=== PATIENT | male | born 1970 | race Caucasian/White ===

== ENCOUNTER 2024-01-10 23:31 | Inpatient (IN) | payer MEDICARE ==
--- NOTE | 2024-01-10 23:48 | ED ---
Chest Pain HPI - General Chief Complaint: Chest Pain Stated Complaint: chest pain fatigue numbness Time Seen by Provider: 01/10/24 23:43 Source: patient Mode of arrival: wheelchair Limitations: no limitations - History of Present Illness Initial Comments: This patient is a 53-year-old man who presents for evaluation of chest pain. He states that he had taken a shower and when he got out around 930 he noticed that there was substernal chest pain, that he states was a tight feeling. He also had diaphoresis and some nausea. The patient states that he took 4 baby aspirin's and when the pain did not resolve he took another 4 and called ambulance. MD Complaint: chest pain Onset/Timin -: hour(s) Onset: during rest Pain Location: substernal Pain Radiation: LUE Severity: moderate Quality: tightness Consistency: constant Improves With: nothing Worsens With: nothing Anginal Symptoms: diaphoresis Treatments Prior to Arrival: aspirin - Related Data Home Medications Medication Instructions Recorded Confirmed Omeprazole Magnesium [PriLOSEC OTC] 20 mg PO DAILY 01/11/24 01/11/24 Previous Rx's Medication Instructions Recorded Aspirin 81 mg PO DAILY #100 tab 01/12/24 Atorvastatin [Lipitor] 80 mg PO HS #30 tab 01/12/24 Losartan [Cozaar] 12.5 mg PO DAILY #30 tab 01/12/24 Metoprolol Tartrate [Lopressor] 25 mg PO BID #60 tab 01/12/24 Nitroglycerin Sl Tabs [Nitrostat] 0.4 mg SUBLINGUAL Q5M PRN #20 tab 01/12/24 Ticagrelor [Brilinta] 90 mg PO BID #60 tab 01/12/24 Allergies Allergy/AdvReac Type Severity Reaction Status Date / Time acetaminophen [From Percocet] AdvReac Vomiting Verified 01/11/24 09:31 oxycodone [From Percocet] AdvReac Vomiting Verified 01/11/24 09:31 Review of Systems ROS Statement: Those systems with pertinent positive or pertinent negative responses have been documented in the HPI. ROS Other: All systems not noted in ROS Statement are negative. Constitutional: Denies: fever, chills Respiratory: Denies: cough, dyspnea Cardiovascular: Reports: chest pain. Denies: palpitations, edema, syncope Gastrointestinal: Reports: nausea. Denies: abdominal pain, vomiting, diarrhea Genitourinary: Denies: dysuria, hematuria Musculoskeletal: Denies: back pain Skin: Denies: rash Neurological: Denies: headache, weakness EKG Findings - EKG Results: EKG: interpreted by PRADEEP, sinus rhythm (Rate 77 bpm), normal axis - MA, Pacemaker, Normal: Myocardial infarction: inferior MA (acute or recent) Past Medical History Past Medical History: No Reported History History of Any Multi-Drug Resistant Organisms: None Reported Past Surgical History: Orthopedic Surgery Past Psychological History: No Psychological Hx Reported Smoking Status: Never smoker Past Alcohol Use History: None Reported Past Drug Use History: None Reported General Exam Limitations: no limitations General appearance: alert, in no apparent distress Head exam: Present: atraumatic, normocephalic Eye exam: Present: normal appearance. Absent: scleral icterus, conjunctival injection Neck exam: Present: normal inspection Respiratory exam: Present: normal lung sounds bilaterally. Absent: respiratory distress, wheezes, rales, rhonchi, stridor, chest wall tenderness, accessory muscle use Cardiovascular Exam: Present: regular rate, normal rhythm, normal heart sounds. Absent: systolic murmur, diastolic murmur, rubs, gallop GI/Abdominal exam: Present: soft. Absent: distended, tenderness, guarding, rebound, rigid, mass Extremities exam: Present: normal inspection, normal capillary refill. Absent: pedal edema, calf tenderness Back exam: Present: normal inspection. Absent: CVA tenderness (R), CVA tenderness (L) Neurological exam: Present: alert Skin exam: Present: warm, dry, intact, normal color. Absent: rash Course Vital Signs 01/10/24 01/10/24 01/10/24 23:32 23:53 23:58 Temperature 97.4 F L Pulse Rate 70 71 98 Respiratory 22 18 18 Rate Blood Pressure 155/88 136/86 153/115 O2 Sat by Pulse 97 96 97 Oximetry 01/11/24 01/11/24 01/11/24 00:03 00:08 00:13 Temperature Pulse Rate 86 82 77 Respiratory 18 18 18 Rate Blood Pressure 138/76 128/74 179/79 O2 Sat by Pulse 96 97 98 Oximetry Chest Pain [facility] - MDM The patient had chest x-ray which I interpreted as negative for acute infiltrate, pneumothorax, congestive heart failure Patient is 53-year-old man presenting with chest pain. I saw and evaluated the patient and then he had ECG performed. I was promptly delivered the ECG and interpreted as showing acute inferior STEMI. I had code STEMI activated and activated Electronics Warfare Technician. Case subsequently discussed with cardiology on-call and they will take patient to Electronics Warfare Technician. Was pt. sent in by a medical professional or institution (, [facility], [facility], urgent care, hospital, or prison...) When possible be specific @ -[No] Did you speak to anyone other than the patient for history (EMS, parent, family, police, friend...)? What history was obtained from this source @ -[No] Did you review nursing and triage notes (agree or disagree)? Why? @ -[I reviewed and agree with nursing and triage notes] Were old charts reviewed (outside hosp., previous admission, EMS record, old EKG, old radiological studies, urgent care reports/EKG's, prison records)? Report findings @ -[No old charts were reviewed] Differential Diagnosis (chest pain, altered mental status, abdominal pain women, abdominal pain men, vaginal bleeding, weakness, fever, dyspnea, syncope, headache, dizziness, GI bleed, back pain, seizure, CVA, palpatations, mental health, musculoskeletal)? @ -[Differential Chest Pain: Stable Angina, Unstable Angina, STEMI, NSTEMI Aortic Dissection, Pneumothorax, Musculoskeletal, Esophageal Spasm GERD, Cholecystitis, Pancreatitis, Zoster, this is not meant to be an all-inclusive list. EKG interpreted by me (3pts min.). @ -[I interpreted as showing inferior STEMI, as above X-rays interpreted by me (1pt min.). @ -[I interpreted as above CT interpreted by me (1pt min.). @ -[None done] U/S interpreted by me (1pt. min.). @ -[None done] What testing was considered but not performed or refused? (CT, X-rays, U/S, labs)? Why? @ -[None] What meds were considered but not given or refused? Why? @ -[None] Did you discuss the management of the patient with other professionals (professionals i.e. , [facility], [facility], lab, RT, psych nurse, social economist, feedlot manager, teacher, food safety officer, counter caser)? Give summary @ -[I discussed the case with cardiology on-call and with Dr. Hargrove who will be the admitting physician, treatment recommendations are incorporated Was smoking cessation discussed for >3mins.? @ -[Yes Was critical care preformed (if so, how long)? @ -[Yes, 30 minutes Were there social determinants of health that impacted care today? How? (Home lessness, low income, unemployed, alcoholism, drug addiction, transportation, low edu. Level, literacy, decrease access to med. care, fci, rehab)? @ -[No] Was there de-escalation of care discussed even if they declined (Discuss DNR or withdrawal of care, Hospice)? DNR status @ -[No] What co-morbidities impacted this encounter? (DM, HTN, Smoking, COPD, CAD, Cancer, CVA, ARF, Chemo, Hep., AIDS, mental health diagnosis, sleep apnea, morbid obesity)? @ -[hypertension Was patient admitted / discharged? Hospital course, mention meds given and route, prescriptions, significant lab abnormalities, going to OR and other pertinent info. @ -[See the above note Undiagnosed new problem with uncertain prognosis? @ -[No] Drug Therapy requiring intensive monitoring for toxicity (Heparin, Nitro, Insul in, Cardizem)? @ -[Heparin Were any procedures done? @ -[No] Diagnosis/symptom? @ -[Acute inferior STEMI Acute, or Chronic, or Acute on Chronic? @ -[Acute Uncomplicated (without systemic symptoms) or Complicated (systemic symptoms)? @ -[Uncomplicated Side effects of treatment? @ -[No] Exacerbation, Progression, or Severe Exacerbation? @ -[No] Poses a threat to life or bodily function? How? (Chest pain, USA, MA, pneumonia, PE, COPD, DKA, ARF, appy, cholecystitis, CVA, Diverticulitis, Homicidal, Suicidal, threat to staff... and all critical care pts) @ -[Yes Disposition Clinical Impression: STEMI (ST elevation myocardial infarction) Disposition: ADMITTED IP TO THIS HOSP Condition: Critical Is patient prescribed a controlled substance at d/c from ED?: No
[2024-01-10] MEDS ORDERED: HEPARIN SODIUM 1,000 UN/ML (10ML VL) IV PRN (23:54)
[2024-01-11] MEDS: MORPHINE SULFATE 4 MG/ML SYRINGE IV STA (00:01)
[2024-01-11] MEDS: HEPARIN SODIUM 1,000 UN/ML (10ML VL) IV ONE ×2 (00:02→00:40)
[2024-01-11] MEDS: HEPARIN SOD,PORK IN 0.45% NACL 25,000 UNIT in 0.45% NACL 1 250ML.BAG IV SCH (00:03)
--- NOTE | 2024-01-11 00:16 | XR ---
EXAM: XR Chest, 1 View CLINICAL HISTORY: ITS.REASON XR Reason: Chest Pain TECHNIQUE: Frontal view of the chest. COMPARISON: No relevant prior studies available. FINDINGS: Lungs: Unremarkable. No consolidation. Pleural space: Unremarkable. No pleural effusion or pneumothorax. Heart: Unremarkable. No cardiomegaly or pulmonary vascular congestion. Bones/joints: No acute fracture. No dislocation. IMPRESSION: No evidence of acute cardiopulmonary disease.
--- NOTE | 2024-01-11 00:24 | P.CRDCN ---
History of Present Illness History of present illness: HISTORY OF PRESENTING ILLNESS This is a pleasant 53-year-old with no significant past medical history other than morbid obesity however does not follow regularly with a doctor. Patient states that around 9:30 PM tonight he is taking a shower and then began to have substernal chest pain associated with some diaphoresis and nausea. The pain did not resolve and therefore called EMS. EKG shows sinus rhythm with inferior ST elevations with reciprocal changes. Blood pressures in the 150s over 80s initially. he does not smoke, no alcohol, no illicit drugs. No family history of coronary artery disease. He admits his blood pressure has been fairly consistently in the 140s and 150s over 90s however has not taken medications at home. REVIEW OF SYSTEMS At the time of my exam: CONSTITUTIONAL: Denies fever or chills. CARDIOVASCULAR: +chest pain, +shortness of breath, no orthopnea, PND or palpitations. RESPIRATORY: Denies cough. GASTROINTESTINAL: Denies abdominal pain, diarrhea, constipation, +nausea no vomiting. MUSCULOSKELETAL: Denies myalgias. NEUROLOGIC: Denies numbness, tingling or weakness. ENDOCRINE: Denies fatigue, weight change, polydipsia or polyurina. GENITOURINARY: Denies burning, hematuria or urgency with micturation. HEMATOLOGIC: Denies history of anemia or bleeding. PHYSICAL EXAMINATION Vital signs reviewed. CONSTITUTIONAL: No apparent distress. HEENT: Head is normocephalic. Pupils are equal, round. Sclerae anicteric. Mucous membranes of the mouth are moist. No JVD. No carotid bruit. CHEST EXAMINATION: Lungs are clear to auscultation. No chest wall tenderness is noted on palpation or with deep breathing. HEART EXAMINATION: Regular rate and rhythm. S1, S2 heard. No murmurs, gallops or rub. ABDOMEN: Soft, nontender. Positive bowel sounds. EXTREMITIES: 2+ peripheral pulses, no lower extremity edema and no calf tenderness. NEUROLOGIC EXAMINATION: Patient is awake, alert and oriented x3. ASSESSMENT Inferior STEMI Morbid obesity Hypertension Poor medical follow-up previously PLAN Discussed risks and benefits of emergency heart catheterization patient is agreeable. Proceed with heart catheterization. Aspirin and heparin. Beta blockers tolerated. Check 2-D echo. further recommendations to follow. Past Medical History Past Medical History: No Reported History History of Any Multi-Drug Resistant Organisms: None Reported Past Surgical History: Orthopedic Surgery Past Psychological History: No Psychological Hx Reported Smoking Status: Never smoker Past Alcohol Use History: None Reported Past Drug Use History: None Reported Medications and Allergies Allergies Allergy/AdvReac Type Severity Reaction Status Date / Time acetaminophen [From Percocet] AdvReac Vomiting Verified 01/10/24 23:34 oxycodone [From Percocet] AdvReac Vomiting Verified 01/10/24 23:34 Physical Exam Vitals: Vital Signs Temp Pulse Resp BP Pulse Ox 01/11/24 00:08 82 18 128/74 97 01/11/24 00:03 86 18 138/76 96 01/10/24 23:58 98 18 153/115 97 01/10/24 23:53 71 18 136/86 96 01/10/24 23:32 97.4 F L 70 22 155/88 97 Intake and Output 01/10/24 01/10/24 01/11/24 14:59 22:59 06:59 Other: Weight 167.829 kg Results Current Medications Generic Name Dose Route Start Last Admin Trade Name Delioq PRN Reason Stop Dose Admin Heparin Sodium (Porcine) 0 unit 01/10/24 23:54 Heparin Sodium 1,000 Un/Ml (10ml Vl) IV PER PROTOCOL PRN Low PTT Protocol Heparin Sodium/Sodium Chloride 250 mls @ 10 mls/hr 01/10/24 23:45 01/11/24 00:03 25,000 unit/ Sodium Chloride IV 5.9584 units/kg/hr .Q24H ADRY 10 mls/hr Administration Protocol 5.9584 UNITS/KG/HR Intake and Output 01/10/24 01/10/24 01/11/24 14:59 22:59 06:59 Other: Weight 167.829 kg Patient Weight 01/11/24 06:59 Weight 167.829 kg
[2024-01-11 00:27] LABS: ALT 26 U/L (4-49); AST 25 U/L (17-59); African American GFR (CKD) >90 (>60 ml/min/1.73 sqM); Albumin 3.4 g/dL (3.5-5.0); Alkaline Phosphatase 117 U/L (38-126); Amylase 58 U/L (30-110); Anion Gap 3 mmol/L; Blood Urea Nitrogen 9 mg/dL (9-20); Carbon Dioxide 28 mmol/L (22-30); Chloride 106 mmol/L (98-107); Glucose 207 mg/dL (74-99); Lipase 122 U/L (23-300); Non-African American GFR(CKD) >90 (>60 ml/min/1.73 sqM); Potassium 4.3 mmol/L (3.5-5.1); Sodium 137 mmol/L (137-145); Total Bilirubin 0.4 mg/dL (0.2-1.3); Total Protein 6.1 g/dL (6.3-8.2)
[2024-01-11] MEDS: SODIUM CHLORIDE 0.9% 1,000 ML IV ONE (00:27)
[2024-01-11] MEDS: MIDAZOLAM 2 MG/2 ML VIAL IVP ONE (00:27)
[2024-01-11] MEDS: LIDOCAINE 1% INJ 10MG/ML (20 ML MDV) SQ ONE (00:27)
[2024-01-11] MEDS: fentaNYL (PF) 50 MCG/1 ML VIAL IVP ONE (00:27)
[2024-01-11] MEDS ORDERED: fentaNYL (PF) 50 MCG/ML 2 ML AMP ONE (00:30)
[2024-01-11] MEDS: VERAPAMIL SYRINGE (5 MG/10 ML) INTRAARTER ONE (00:31)
[2024-01-11] MEDS ORDERED: TICAGRELOR 90 MG TAB ONE (00:37)
[2024-01-11] MEDS ORDERED: HEPARIN SODIUM 1,000 UN/ML (10ML VL) ONE (00:38)
[2024-01-11] MEDS: TICAGRELOR 90 MG TAB PO ONE (00:42)
[2024-01-11 00:44] LABS: Partial Thromboplastin Time 22.8 sec (22.0-30.0); Prothrombin Time 10.7 sec (10.0-12.5)
[2024-01-11] MEDS: HEPARIN SODIUM 1,000 UN/ML (10ML VL) IVP ONE (00:50)
[2024-01-11] MEDS: NITROGLYCERIN 1000MCG/10ML SYRINGE INTRACORON ONE (01:08)
[2024-01-11] MEDS: IOPAMIDOL-370 100ML BTL INJ ONE ×2 (01:12→01:21)
[2024-01-11 01:14] LABS: Basophils % (A) 0 %; Eosinophils # (A) 0.3 k/uL (0-0.7); Eosinophils % (A) 2 %; HCT 51.2 % (39.0-53.0); HGB 16.9 gm/dL (13.0-17.5); Lymphocytes # (A) 2.1 k/uL (1.0-4.8); Lymphocytes % (A) 17 %; MCH 29.5 pg (25.0-35.0); MCV 89.2 fL (80.0-100.0); Mean Platelet Volume 9.2; Monocytes # (A) 0.6 k/uL (0-1.0); Monocytes % (A) 5 %; Neutrophils # (A) 8.8 k/uL (1.3-7.7); Neutrophils % (A) 74 %; Platelet Count 265 k/uL (150-450); RBC 5.73 m/uL (4.30-5.90); RDW 14.1 % (11.5-15.5); WBC 11.9 k/uL (3.8-10.6)
[2024-01-11] MEDS ORDERED: RX INFO: IV CONTRAST WAS GIVEN 1 EACH MISC MISCELLANE PRN (01:30)
[2024-01-11] MEDS ORDERED: ZOLPIDEM 5 MG TAB PO PRN (01:30)
[2024-01-11] MEDS ORDERED: ATROPINE SULFATE 0.1 MG/ML 10ML SYRINGE IV PRN (01:30)
[2024-01-11] MEDS ORDERED: NITROGLYCERIN SL TABS 0.4 MG TAB SUBLINGUAL PRN (01:30)
[2024-01-11] MEDS ORDERED: MAG HYDROX/AL HYDROX/SIMETH 30 ML CUP PO PRN (01:30)
--- NOTE | 2024-01-11 01:30 | P.PRCINT ---
Percutaneous Coronary Int. - Percutaneous Coronary Intervention Percutaneous Coronary Intervention: PROCEDURES PERFORMED: Left heart catheterization, bilateral coronary angiography, ultrasound guided arterial access, PCI proximal LAD with a 4.0 x 15mm Xience DANITA, IVUS RCA, Penumbra aspiration thrombectomy RCA INDICATION: inferior STEMI CONSENT:I have discussed the risks, benefits and alternative therapies for the above-mentioned procedure and for both sedation/analgesia as well as necessary blood product administration, if indicated, as they pertain to this patient. The patient has indicated understanding and acceptance of the risks and procedures discussed. PROCEDURE: After the risks, benefits and alternatives of the above mentioned procedure explained in detail with the patient, informed consent was obtained. Patient was taken to the catheterization lab and prepped and draped in usual fashion. Ultrasound guidance was used to assess for arterial access. 1% lidocaine was used to anesthetize the right radial artery. A 6-German sheath was placed in the right radial artery using modified Seldinger technique and ultrasound guidance. the decision was made to perform PCI of the RCA. A 6-German AL 0.75 guide was used to engage RCA. A 0.014 BMW wire was advanced in the distal RCA. Given significant thrombus burden, aspiration thrombectomy was performed with Penumbra aspiration thrombectomy catheter. Predilation was performed with a 3.5 mm balloon. there was what appeared to be a flush occlusion of the PDA and therefore attempted wiring this with a whisper wire as well and appeared to be in lumen with into a PDA septal. Therefore balloon angioplasty was performed with a 2.5 x 12 mm balloon. This however did not open up the artery. Therefore intervascular ultrasound was performed which showed reference vessel more proximally 4.0 mm however at the flush occlusion unable to pass catheter and appeared to be small caliber on intervascular ultrasound. Given patient's chest pain had nearly all improved with only 1 out of 10 chest pain this was felt best treated medically. A 4.0 x 15 mm Xience DANITA was placed in the proximal RCA. Repeat intervascular ultrasound showed well-expanded stent with no dissection. Final angiograms were performed. Preintervention there was 99% stenosis and JANET 2 flow and postintervention there was less than 10% stenosis with JANET 3 flow. Left coronary angiography was performed with a 5-German JL 3.5 catheter. A 5- German FL3.5 catheter was inserted into the left ventricle and pressure measurements were obtained. The right radial sheath was removed and a TR band was placed with hemostasis achieved. The patient tolerated the procedure well. Patient was transported back to the post catheterization holding area in stable condition. Conscious Sedation: Patient was monitored under the direct supervision of myself for conscious sedation using Versed and fentanyl for a total duration of 53 minutes HEMODYNAMICS: Ao: 146/71 LV: 144/5, LVEDP 15mmHg SELECTIVE CORONARY ARTERIOGRAPHY: LEFT MAIN: The left main is a large caliber vessel which bifurcates into the LAD and circumflex. There is no significant stenosis. LEFT ANTERIOR DESCENDING CORONARY ARTERY: LAD is a large caliber vessel which wraps around to the apex. There is diffuse 20% stenosis of the proximal and mid LAD. LEFT CIRCUMFLEX CORONARY ARTERY: Left circumflex is a moderate caliber vessel with mid circumflex 30-40% stenosis. RIGHT CORONARY ARTERY: The right coronary artery is a large caliber vessel which gives off a PDA and PLV branch and is the dominant vessel. There is diffuse proximal 20-30% stenosis followed by a more focal ulcerated plaque with 99% stenosis and heavy thrombus burden. This gives off a PLV branch and PDA branch. There does appear to be a flush occlusion of the distal PDA however also made become small caliber at this point.. FINAL IMPRESSION: 1. CAD as described above including 99% proximal RCA stenosis, 30-40% mid circumflex and 20% LAD stenosis 2. Normal left sided filling pressures 3. Status post PCI proximal LAD with a 4.0 x 15mm Xience DANITA PLAN: 1. Aggressive risk factor modification per most recent ACC/AHA guidelines. 2. Continue dual antiplatelets with aspirin and Brillinta for 12 months
[2024-01-11 01:45] LABS: Glucose,Whole Blood 176 mg/dL (70-110)
[2024-01-11] MEDS: SODIUM CHLORIDE 0.9% 1,000 ML in EMPTY BAG 1 BAG IV SCH (02:12)
[2024-01-11 07:10] LABS: Basophils % (A) 0 %; Eosinophils # (A) 0.1 k/uL (0-0.7); Eosinophils % (A) 1 %; HGB 14.3 gm/dL (13.0-17.5); Lymphocytes # (A) 3.2 k/uL (1.0-4.8); Lymphocytes % (A) 26 %; MCH 28.4 pg (25.0-35.0); MCHC 31.7 g/dL (31.0-37.0); MCV 89.6 fL (80.0-100.0); Mean Platelet Volume 8.5; Monocytes # (A) 0.7 k/uL (0-1.0); Monocytes % (A) 6 %; Neutrophils # (A) 7.9 k/uL (1.3-7.7); Neutrophils % (A) 65 %; Platelet Count 252 k/uL (150-450); RBC 5.03 m/uL (4.30-5.90); WBC 12.2 k/uL (3.8-10.6)
[2024-01-11 07:39] LABS: Prothrombin Time 10.9 sec (10.0-12.5)
--- NOTE | 2024-01-11 08:06 | P.PN ---
Subjective Progress Note Date: 01/11/24 Principal diagnosis: Acute coronary syndrome The patient is a 53-year-old gentleman with overweight and hypertension and dyslipidemia presented to the hospital with chest discomfort and was diagnosed with acute inferior ST deviation myocardial infarction and underwent PCI of the RCA. The echo still pending. January 11, 2024 The patient was seen and evaluated this morning. He is asymptomatic. He is hemodynamically stable. He is on dual antiplatelet therapy along with high intensity statin and beta-reggie with the echo still pending. The examination revealed regular rhythm with clear breathing sounds bilaterally and no carotid bruit and no edema was noted Assessment Acute inferior ST elevation myocardial infarction Multiple comorbid conditions including diabetes and hypertension as lipidemia Plan Continue the current medical regimen Continue dual antiplatelet therapy along with high intensity statin Follow-up with the echocardiogram Follow-up with the patient Monitor for any arrhythmia Objective - Vital Signs Vital signs: Vital Signs Temp 98.5 F 01/11/24 04:00 Pulse 70 01/11/24 07:00 Resp 7 L 01/11/24 07:00 BP 123/73 01/11/24 07:00 Pulse Ox 96 01/11/24 07:00 FiO2 Intake & Output 01/10/24 01/11/24 01/11/24 18:59 06:59 18:59 Intake Total 1608 Output Total 1000 Balance 608 Weight 167 kg Intake: IV 1608 Sodium Chloride 0.9% 1, 1008 000 ml In Empty Bag 1 bag @ 1 ML/KG/HR 167.829 mls /hr IV .Q5H58M [facility] Rx#: [id number] Output: Urine 1000 - Labs CBC & Chem 7: 01/11/24 05:51 01/10/24 23:52 Labs: Abnormal Lab Results - Last 24 Hours (Table) 01/10/24 01/10/24 01/11/24 Range/Units 23:52 23:52 01:42 WBC 11.9 H (3.8-10.6) k/uL Neutrophils # 8.8 H (1.3-7.7) k/uL Glucose 207 H (74-99) mg/dL POC Glucose (mg/dL) 176 H (70-110) mg/dL Total Protein 6.1 L (6.3-8.2) g/dL Albumin 3.4 L (3.5-5.0) g/dL 01/11/24 Range/Units 05:51 WBC 12.2 H (3.8-10.6) k/uL Neutrophils # 7.9 H (1.3-7.7) k/uL Glucose (74-99) mg/dL POC Glucose (mg/dL) (70-110) mg/dL Total Protein (6.3-8.2) g/dL Albumin (3.5-5.0) g/dL
[2024-01-11] MEDS: METOPROLOL TARTRATE 25 MG TAB PO SCH (09:28)
[2024-01-11] MEDS: TICAGRELOR 90 MG TAB PO SCH (09:29)
[2024-01-11] MEDS: ASPIRIN 81 MG PO SCH (09:29)
[2024-01-11] MEDS: LOSARTAN 25 MG TAB PO SCH (09:29)
[2024-01-11 11:44] VITALS: BMI 49.9
--- NOTE | 2024-01-11 13:23 | HP ---
HISTORY AND PHYSICAL CHIEF COMPLAINT: Chest pain. HISTORY OF PRESENT ILLNESS: This is a first known admission for this 53-year-old overweight male. He has not been in the office for years. He only takes Motrin. He is disabled due to prior right knee injury. He was sitting at home when he developed a right parasternal chest pain or pressure associated with diaphoresis and some shortness of breath. His daughter brought him to the hospital, where he was found to have acute NSTEMI, he was taken to the systems testing laboratory technician. REVIEW OF SYSTEMS: Otherwise unremarkable. Past medical history, family history, personal and social histories are otherwise unremarkable. ALLERGIES: He is allergic to Percocet. MEDICATIONS: He has been on: 1. Prilosec. 2. Ibuprofen. PHYSICAL EXAMINATION: VITAL SIGNS: Normal. HEAD, EARS, EYES, NOSE, MOUTH, AND THROAT: Normal. CHEST: Clear. CARDIAC: Normal with sinus rhythm. ABDOMEN: Soft and nontender. EXTREMITIES: Normal except the right knee. NEUROLOGICAL: He is intact. IMPRESSION: He was admitted to the hospital with diagnoses: 1. Acute epa-BO-yzhurstjy myocardial infarction. 2. Disability due to old injury to the right knee. PLAN: 1. Bedrest. 2. IV fluids. 3. Serial EKGs. 4. Cardiology consult. MMODL / IJN: [id number] /
--- NOTE | 2024-01-11 14:00 | PN ---
PROGRESS NOTE DATE OF SERVICE: 01/11/2024 CHIEF COMPLAINT: Acute PR. HISTORY OF PRESENT ILLNESS: The gentleman is doing well. He has had no arrhythmias, chest pain, shortness of breath, etc. PHYSICAL EXAMINATION: VITAL SIGNS: Normal. CHEST: Clear. CARDIAC: Normal. ABDOMEN: Soft and nontender. IMPRESSION: 1. Status post NSTEMI. 2. Coronary artery disease. PLAN: Follow with Cardiology and arrange for outpatient followup. MMODL / IJN: [id number] /
--- NOTE | 2024-01-11 15:11 | CDI ---
Documentation Clarification Form Date: 01/11/2024 02:48:32 PM From: Nadia Prieto RN, CCDS Phone: [phone] Admit Date: 01/11/2024 12:03:00 AM Patient Name: Misael Nelson Visit Number: [id number] Discharge Date: ATTENTION: The Clinical Documentation Specialists (CDI) and [facility] Coding Staff appreciate your assistance in clarifying documentation. Please respond to the clarification below the line at the bottom and electronically sign. The CDI & [facility] Coding staff will review the response and follow-up if needed. Please note: Queries are made part of the Legal Health Record. If you have any questions, please contact the author of this message via ITS. Dr. Ross Hargrove Conflicting documentation has been found in the medical record. As attending physician, please provide clarification. 01/10 Cardiology consult and progress note: Acute inferior ST elevation myocardial infarction 01/10 Attending H/P and progress note: Acute bhv-KU-vbayelhjy myocardial infarction. History/Risk Factors: morbid obesity, hypertension Clinical Indicators: 53-year-old man who presents for evaluation of chest pain. EKG shows sinus rhythm with inferior ST elevations with reciprocal changes. 01/10 VS 138/76 96 18 96% 01/10 cardiology progress note: Acute inferior ST elevation myocardial infarction Multiple comorbid conditions including diabetes and hypertension as lipidemia Treatment: Cardiac Telemetry monitoring 01/10 Left heart catheterization PTCA Cozaar 12.5 MG PO DAILY 01/10-01/10 Lo pressor 25 MG PO BID 01/10 -01/10 Please clarify which diagnosis is most appropriate: [ ] Acute inferior ST elevation myocardial infarction. [ ] Acute sip-MS-gflmrmsgj myocardial infarction. [ ] Other (please specify) [ ] Unable to determine (Template Last Revised: November 2020) MTDD
--- NOTE | 2024-01-11 17:09 | CA ---
Transthoracic Echo Report Name: Misael Nelson Age: 53 Gender: M : 1970 Exam Date: 01/11/2024 08:16 Exam Location: [place] [facility] Ht (in): 72 Wt (lb): 370 Ordering Physician: Anthony Brown DO ([email or web address]) Attending/Referring Phys: Self Storage Manager Maru Tam RDCS Procedure CPT: Indications: re: LV function Cardiac Hx: stent Technical Quality: Technically difficult study Contrast 1: Definity Total Dose (mL): 2 Contrast 2: Total Dose (mL): MEASUREMENTS (Male / Female) Normal Values 2D ECHO LV Diastolic Diameter PLAX 4.6 cm 4.2 - 5.9 / 3.9 - 5.3 cm LV Systolic Diameter PLAX 2.9 cm IVS Diastolic Thickness 1.3 cm 0.6 - 1.0 / 0.6 - 0.9 cm LVPW Diastolic Thickness 1.4 cm 0.6 - 1.0 / 0.6 - 0.9 cm LV Relative Wall Thickness 0.6 RV Internal Dim ED PLAX 3.6 cm LA Systolic Diameter LX 4.2 cm 3.0 - 4.0 / 2.7 - 3.8 cm LA Volume 64.8 cm??? 18 - 58 / 22 - 52 cm??? LA Volume Index 21.6 cm???/m??? 16 - 28 cm???/m??? M-MODE Aortic Root Diameter MM 3.6 cm MV E Point Septal Separation 0.7 cm AV Cusp Separation MM 2.6 cm DOPPLER AV Peak Velocity 171.5 cm/s AV Peak Gradient 11.8 mmHg TR Peak Velocity 274.1 cm/s TR Peak Gradient 30.1 mmHg Right Ventricular Systolic Press 35.1 mmHg FINDINGS Left Ventricle Left ventricular ejection fraction is estimated at 50-55 %. Left ventricular cavity size normal. Mildly increased septal wall thickness. Mid to distal inferior wall hypokinesis Right Ventricle Mild right ventricular dilatation. Mild pulmonary hypertension. Right Atrium Right atrium not well visualized. Left Atrium Mildly increased left atrial diameter. Mildly increased left atrial volume. Mitral Valve Mitral valve not well visualized. No mitral stenosis, regurgitation or prolapse. Aortic Valve Trileaflet aortic valve. No aortic valve stenosis or regurgitation. Tricuspid Valve Structurally normal tricuspid valve. Mild tricuspid regurgitation. Pulmonic Valve Structurally normal pulmonic valve. No pulmonic regurgitation. Pericardium No pericardial effusion. Aorta Normal size aortic root and proximal ascending aorta. CONCLUSIONS Normal LV function Basal inferior wall hypokinesis Mild pulmonary hypertension Previewed by: Dr. Samson Adair MD (Electronically Signed) Final Date: 11 January 2024 17:08
[2024-01-11] MEDS: ATORVASTATIN 80 MG TAB PO SCH (20:45)
[2024-01-12 06:57] LABS: Basophils # (A) 0.1 k/uL (0-0.2); Basophils % (A) 0 %; Eosinophils # (A) 0.5 k/uL (0-0.7); Eosinophils % (A) 4 %; HCT 43.3 % (39.0-53.0); HGB 14.1 gm/dL (13.0-17.5); Lymphocytes # (A) 3.3 k/uL (1.0-4.8); Lymphocytes % (A) 29 %; MCH 29.3 pg (25.0-35.0); MCHC 32.6 g/dL (31.0-37.0); MCV 89.8 fL (80.0-100.0); Monocytes # (A) 0.7 k/uL (0-1.0); Monocytes % (A) 6 %; Neutrophils # (A) 6.5 k/uL (1.3-7.7); Neutrophils % (A) 58 %; Platelet Count 225 k/uL (150-450); RBC 4.82 m/uL (4.30-5.90); RDW 14.3 % (11.5-15.5); WBC 11.3 k/uL (3.8-10.6)
[2024-01-12 07:15] LABS: African American GFR (CKD) >90 (>60 ml/min/1.73 sqM); Anion Gap 7 mmol/L; Blood Urea Nitrogen 8 mg/dL (9-20); Calcium 8.1 mg/dL (8.4-10.2); Carbon Dioxide 22 mmol/L (22-30); Chloride 108 mmol/L (98-107); Glucose 142 mg/dL (74-99); Non-African American GFR(CKD) >90 (>60 ml/min/1.73 sqM); Potassium 3.6 mmol/L (3.5-5.1); Sodium 137 mmol/L (137-145)
--- NOTE | 2024-01-12 07:48 | P.PN ---
Subjective Progress Note Date: 01/12/24 Principal diagnosis: Acute coronary syndrome The patient is a 53-year-old gentleman with overweight and hypertension and dyslipidemia presented to the hospital with chest discomfort and was diagnosed with acute inferior ST deviation myocardial infarction and underwent PCI of the RCA. The echo still pending. January 11, 2024 The patient was seen and evaluated this morning. He is asymptomatic. He is hemodynamically stable. He is on dual antiplatelet therapy along with high intensity statin and beta-reggie with the echo still pending. The examination revealed regular rhythm with clear breathing sounds bilaterally and no carotid bruit and no edema was noted January 12, 2024 The patient was seen and evaluated this morning. He is asymptomatic from a cardiovascular standpoint of view. He is hemodynamically stable as well. He continues to be on dual antiplatelet therapy along with high intensity statin. The patient would like to go home today. The echo revealed normal LV systolic function with no significant valvular abnormalities. The examination revealed regular rhythm with clear breathing sounds bilaterally and no edema was noted. Assessment Acute inferior ST elevation myocardial infarction Preserved LV systolic function Multiple comorbid conditions including diabetes and hypertension as lipidem Plan Continue the current medical regimen Continue dual antiplatelet therapy along with high intensity statin The patient would like to be discharged today Objective - Vital Signs Vital signs: Vital Signs Temp 98 F 01/12/24 04:00 Pulse 79 01/12/24 07:00 Resp 12 01/12/24 07:00 BP 119/50 01/12/24 07:00 Pulse Ox 95 01/12/24 07:00 FiO2 Intake & Output 01/11/24 01/12/24 01/12/24 18:59 06:59 18:59 Intake Total 2737 334 Output Total 390 350 Balance 7 -16 Weight 167 kg 167.2 kg Intake: IV 1837 334 Sodium Chloride 0.9% 1 183 334 000 ml In Empty Bag 1 bag @ 1 ML/KG/HR 167.829 mls /hr IV [id number] ADRY Rx#: [id number] Oral 900 Output: Urine 390 350 Other: # Voids 1 1 - Labs CBC & Chem 7: 01/12/24 05:54 01/12/24 05:54 Labs: Abnormal Lab Results - Last 24 Hours (Table) 01/12/24 01/12/24 Range/Units 05:54 05:54 WBC 11.3 H (3.8-10.6) k/uL Chloride 108 H (98-107) mmol/L BUN 8 L (9-20) mg/dL Glucose 142 H (74-99) mg/dL Calcium 8.1 L (8.4-10.2) mg/dL
[2024-01-12 12:44] VITALS: BP 153/84; PULSE 83; RESP 21; TEMP 98.6
--- NOTE | 2024-01-13 01:51 | DS ---
DISCHARGE SUMMARY CHIEF COMPLAINT: Chest pain. HISTORY OF PRESENT ILLNESS AND PHYSICAL EXAMINATION: Details of this man's history and physical can be found in the initial workup. LABORATORY STUDIES: While he was in the hospital, he had laboratory studies, details of which can be found in the laboratory section of his chart. COURSE IN THE HOSPITAL: After admission, he was placed on bedrest and taken to the veterinary laboratory technician, where he underwent cardiac stenting. Postoperatively, he did well. He is anxious to be discharged. He is cleared by Cardiology to go home on the and go home on light activity about the house. Appropriate medications were advised to try to lose weight and begin light exercise. He might be followed up in my office in several days. He will be set up for cardiac rehab. FINAL DIAGNOSES: 1. Acute non ST elevation myocardial infarction. 2. Obesity. OPERATIONS: Cardiac cath and stenting. CONSULTATION: Cardiology. He is improved. MMODL / IJN: [id number] /
--- NOTE | 2024-02-16 14:44 | CDI ---
Documentation Clarification Form Date: 01/11/2024 02:48:00 PM From: Nadia Prieto RN, CCDS Phone: [phone] Admit Date: 02/16/2024 12:03:00 AM Patient Name: Misael Nelson Visit Number: [id number] Discharge Date: 01/12/2024 12:45:00 PM ATTENTION: The Clinical Documentation Specialists (CDI) and [facility] Coding Staff appreciate your assistance in clarifying documentation. Please respond to the clarification below the line at the bottom and electronically sign. The CDI & [facility] Coding staff will review the response and follow-up if needed. Please note: Queries are made part of the Legal Health Record. If you have any questions, please contact the author of this message via ITS. Dr. Ross Hargrove Conflicting documentation has been found in the medical record. As attending physician, please provide clarification. 01/10 Cardiology consult and progress note: Acute inferior ST elevation myocardial infarction 01/10 Attending H/P and progress note: Acute cfs-NI-alakpfkfo myocardial infarction. History/Risk Factors: morbid obesity, hypertension Clinical Indicators: 53-year-old man who presents for evaluation of chest pain. EKG shows sinus rhythm with inferior ST elevations with reciprocal changes. 01/10 VS 138/76 96 18 96% 01/10 cardiology progress note: Acute inferior ST elevation myocardial infarction Multiple comorbid conditions including diabetes and hypertension as lipidemia Treatment: Cardiac Telemetry monitoring 01/10 Left heart catheterization PTCA Cozaar 12.5 MG PO DAILY 01/10-01/10 Lo pressor 25 MG PO BID 01/10 -01/10 Please clarify which diagnosis is most appropriate: [ ] Acute inferior ST elevation myocardial infarction. [ ] Acute cec-RB-okvqqfamw myocardial infarction. [ ] Other (please specify) [ ] Unable to determine (Template Last Revised: November 2020) MTDD
== END 2024-01-12 12:45 | disposition home or self-care (01) | DRG 322 ==
LOC: EC 23:31 → 2SICU 01-11 00:03
PROVIDERS: ADMIT Family Medicine; ATTEND Family Medicine
PROC: 4A023N7 Measurement of Cardiac Sampling and Pressure, Left Heart, Percutaneous Approach (ICD-10-PCS; principal; 2024-01-11 00:22)
PROC: 027034Z Dilation of Coronary Artery, One Artery with Drug-eluting Intraluminal Device, Percutaneous Approach (ICD-10-PCS; 2024-01-11 00:22)
PROC: 02C03ZZ Extirpation of Matter from Coronary Artery, One Artery, Percutaneous Approach (ICD-10-PCS; 2024-01-11 00:22)
PROC: B2111ZZ Fluoroscopy of Multiple Coronary Arteries using Low Osmolar Contrast (ICD-10-PCS; 2024-01-11 00:22)
PROC: B240ZZ3 Ultrasonography of Single Coronary Artery, Intravascular (ICD-10-PCS; 2024-01-11 00:22)
DX: I21.4 Non-ST elevation (NSTEMI) myocardial infarction (principal); Z68.43 Body mass index [BMI] 50.0-59.9, adult; E66.01 Morbid (severe) obesity due to excess calories; E11.9 Type 2 diabetes mellitus without complications; I25.119 Atherosclerotic heart disease of native coronary artery with unspecified angina pectoris; I10 Essential (primary) hypertension; E78.5 Hyperlipidemia, unspecified; Z88.5 Allergy status to narcotic agent; Z87.828 Personal history of other (healed) physical injury and trauma; Z73.6 Limitation of activities due to disability; Z79.02 Long term (current) use of antithrombotics/antiplatelets; Z79.82 Long term (current) use of aspirin; Z79.899 Other long term (current) drug therapy
CPT/HCPCS: 36415; 71045; 76937; 80048; 80053; 82150; 83690; 83735; 84484; 85025; 85379; 85610; 85730; 92973; 92978; 93005; 93306; 93458; 96374; 96375; 99291; 99406

== ENCOUNTER → 2024-01-19 | Outpatient (CLI) | payer MEDICARE ==
[2024-01-19 15:11] LABS: ALT 25 U/L (10-49); AST 22 U/L (14-35); Chol/HDL Ratio 3.18 Ratio; LDL Cholesterol,Calculated 51.5 mg/dL (0.0-131.0); VLDL Calculation 17.66 mg/dL (5.00-40.00)
== END | disposition home or self-care (01) ==
LOC: LABWHC1 11:43
PROVIDERS: ATTEND Internal Medicine
DX: E78.2 Mixed hyperlipidemia (principal)
CPT/HCPCS: 36415; 80061; 83036; 84450; 84460

== ENCOUNTER → 2024-12-15 | Outpatient (CLI) | payer MEDICARE ==
[2024-12-15 15:16] LABS: ALT 24 U/L (10-49); AST 25 U/L (14-35); Chol/HDL Ratio 2.89 Ratio; LDL Cholesterol,Calculated 46.5 mg/dL (0.0-131.0)
== END | disposition home or self-care (01) ==
LOC: LABWHC1 10:43
PROVIDERS: ATTEND Internal Medicine
DX: E78.2 Mixed hyperlipidemia (principal)
CPT/HCPCS: 36415; 80061; 84450; 84460